=== PATIENT | female | born 1995 | race Caucasian/White ===

== ENCOUNTER 2022-07-15 22:45 | Emergency (ER) | payer BC ==
[~2022-07-15] VITALS: Ht 172.7 cm; Wt 81.6 kg
--- NOTE | 2022-07-15 23:35 | NUR ---
BIBMOTHER FROM HOME C/O R KNEE PAIN S/P PLAYING SOCCER "R LEG TWISTED INWARDS"
[2022-07-15] MEDS ORDERED: IBUPROFEN 400 MG TABLET ONE (23:39)
--- NOTE | 2022-07-15 23:40 | NUR ---
X-RAY AT BEDSIDE
--- NOTE | 2022-07-15 23:55 | NUR ---
DR. JANG AT BEDSIDE
[2022-07-16] MEDS ORDERED: IBUPROFEN 400 MG TABLET PO ONE
[2022-07-16] MEDS ORDERED: HYDR-3972 PO (00:02)
[2022-07-16] MEDS ORDERED: IBUP-1957 PO (00:02)
[2022-07-16 00:35] VITALS: BP 115/67
--- NOTE | 2022-07-16 00:35 | NUR ---
Patient discharged to home in stable condition. Written and verbal after care instructions given. Patient verbalizes understanding of instruction.
== END 2022-07-16 00:35 | disposition home or self-care (01) ==
LOC: ER 22:48
DX: S83.8X1A Sprain of other specified parts of right knee, initial encounter (principal); Z79.899 Other long term (current) drug therapy; X50.1XXA Overexertion from prolonged static or awkward postures, initial encounter; Y93.66 Activity, soccer; Y92.89 Other specified places as the place of occurrence of the external cause; Y99.8 Other external cause status
CPT/HCPCS: 73564-TC